=== PATIENT | male | born 1970 | race Caucasian/White ===

== ENCOUNTER 2017-03-07 05:01 | Emergency (ER) | payer MEDICARE ==
[2017-03-07] MEDS ORDERED: PSEUDOEPHEDRINE 30 MG TABLET PO STA (05:11)
[2017-03-07] MEDS ORDERED: KETOROLAC 60 MG/2 ML VIAL IM STA (05:12)
--- NOTE | 2017-03-07 05:16 | ED Physician Documentation ---
History of Present Illness - Stated complaint Stated Complaint: LIGHTHEADED,SINUS PROBLEMS - Chief complaint Chief Complaint: General - History obtained from History obtained from: Patient, Family - History of Present Illness Timing: Yesterday - Additonal information Additional information: Patient is a 46 year old male with a history of epilepsy who is presenting to the emergency department for sinus congestion, "feeling funny" and presumed dehydration. patient states that yesterday at work he felt a little light headed. He felt like he could do everything but that he had sinus pressure, and pressure around his eyes. Patient also states that he hasn't had a bowel movement in over a day. patient states that he is not drinking enough fluids but denies any nausea or vomiting. Patient denies any chest pain or abdominal pain. Review of Systems Constitutional: denies: Fever, Chills Eyes: denies: Discharge, Irritation Ears: denies: Ear pain Nose: reports: Congestion, Sinus pressure / pain Throat: denies: Sore throat Cardiac: denies: Palpitations Respiratory: denies: Cough, Wheezing GI: reports: Constipation. denies: Abdominal Pain, Nausea, Vomiting : denies: Dysuria, Frequency Skin: denies: Rash, Lesions Neurologic: denies: Generalized weakness, Focal weakness, Numbness Immunocompromised: denies: Immunocompromised PD PAST MEDICAL HISTORY - Present Medications Home Medications: Ambulatory Orders Medication Instructions Recorded Confirmed Home Medications Unobtainable 03/07/17 03/07/17 [HOME MEDICATIONS UNOBTAINABLE] - Allergies Allergies/Adverse Reactions: Allergies Allergy/AdvReac Type Severity Reaction Status Date / Time Penicillins AdvReac Unknown Verified 03/07/17 05:11 PD ED PE NORMAL - Vitals Vital signs reviewed: Yes - General General: Alert and oriented X 3, No acute distress, Well developed/nourished - HEENT HEENT: Atraumatic, PERRL, Ears normal, Pharynx benign - Neck Neck: Supple, no meningeal sign, No JVD - Cardiac Cardiac: RRR, No murmur - Respiratory Respiratory: No respiratory distress, Clear bilaterally - Abdomen Abdomen: Soft, Non tender, Non distended - Derm Derm: Normal color, Warm and dry, No rash - Extremities Extremities: No deformity, No edema, No calf tenderness / cord - Neuro Neuro: Alert and oriented X 3, No motor deficit, No sensory deficit, Normal speech - Psych Psych: Normal mood Results - Vitals Vitals: Vital Signs - 24 hr 03/07/17 05:06 Temperature 36.7 C Heart Rate 81 Respiratory 18 Rate Blood Pressure 157/96 H O2 Saturation 99 Oxygen O2 Source Room air - Labs Labs: Laboratory Tests 03/07/17 03/07/17 05:22 05:22 WBC 5.0 RBC 5.38 Hgb 16.4 Hct 48.3 MCV 89.7 MCH 30.4 MCHC 33.9 RDW 12.3 Plt Count 176 MPV 9.1 Neut # 3.3 Lymph # 1.1 L Woodward # 0.5 Eos # 0.1 Baso # 0.0 Absolute Nucleated RBC 0.00 Nucleated RBC % 0.0 Sodium 138 Potassium 4.3 Chloride 104 Carbon Dioxide 26 Anion Gap 8.0 BUN 19 Creatinine 1.0 Estimated GFR (MDRD) 80 L Glucose 109 H Calcium 9.0 Total Bilirubin 0.9 AST 25 ALT 26 Alkaline Phosphatase 58 Total Protein 7.3 Albumin 4.5 Globulin 2.8 Albumin/Globulin Ratio 1.6 Lipase 29 PD MEDICAL DECISION MAKING - ED course Complexity details: reviewed old records, reviewed results, re-evaluated patient , considered differential, d/w patient, d/w family ED course: Patient was seen and examined at bedside. Patient's vital signs were within normal limits and patient was able to tolerate PO without difficulty. labs were drawn and patient was treated with toradol, pseudophed and given a liter of fluid to drink. patient tolerated it without difficulty. Patient required no further work up and was stable for discharge with outpatient follow up. Departure - Departure Disposition: 01 Home, Self Care Clinical Impression: Viral syndrome Condition: Good Instructions: ED Viral Syndrome Follow-Up: Valarie Bower ARNP [Primary Care Provider] - Within 1 week Comments: Your diagnostics today were within normal limits. Your symptoms are likely viral in nature. There is nothing to kill the virus so we just treat the symptoms. You can take over the counter cold/flu/congestion medication. It is important that you get plenty of rest and stay well hydrated with water and electrolyte solutions (gatorade/pedialyte). You should follow up with your doctor if your symptoms persist for more than the next 3-4 days. You may return to the emergency department at any time for new, worsening or uncontrollable symptoms. Forms: Activity restrictions
[2017-03-07 05:28] LABS: BASOPHILS % (AUTO) 0.7 %; EOSINOPHILS # (AUTO) 0.1 10^3/uL (0.0-0.7); EOSINOPHILS % (AUTO) 1.4 %; HGB - HEMOGLOBIN 16.4 g/dL (14.0-18.0); LYMPHOCYTES # (AUTO) 1.1 10^3/uL (1.5-3.5); LYMPHOCYTES % (AUTO) 21.9 %; MEAN CORPUSCULAR HEMOGLOBIN 30.4 pg (27.0-31.0); MEAN CORPUSCULAR HGB CONC 33.9 g/dL (32.0-36.0); MEAN CORPUSCULAR VOLUME 89.7 fL (80.0-94.0); MEAN PLATELET VOLUME 9.1 fL (7.4-11.4); MONOCYTES # (AUTO) 0.5 10^3/uL (0.0-1.0); NEUTROPHILS # (AUTO) 3.3 10^3/uL (1.5-6.6); PLT - PLATELET COUNT 176 10^3/uL (130-450); RED BLOOD COUNT 5.38 10^6/uL (4.70-6.10); RED CELL DISTRIBUTION WIDTH 12.3 % (12.0-15.0)
[2017-03-07 05:40] LABS: ALBUMIN 4.5 g/dL (3.2-5.5); ALBUMIN/GLOBULIN RATIO 1.6 (1.0-2.2); BILIRUBIN,TOTAL 0.9 mg/dL (0.2-1.0); TOTAL PROTEIN 7.3 g/dL (6.7-8.2)
[2017-03-07 05:51] LABS: BILIRUBIN,URINE NEGATIVE (NEGATIVE); GLUCOSE, URINE (UA) NEGATIVE (NEGATIVE); KETONES,URINE (UA) NEGATIVE (NEGATIVE); LEUKOCYTE ESTERASE, URINE NEGATIVE (NEGATIVE); NITRITE,URINE NEGATIVE (NEGATIVE); OCCULT BLOOD,URINE NEGATIVE (NEGATIVE); PROTEIN,URINE NEGATIVE (NEGATIVE); UROBILINOGEN,URINE 0.2 (NORMAL) E.U./dL (NORMAL)
[2017-03-07 05:52] LABS: CLARITY,URINE CLEAR (CLEAR)
[2017-03-07 05:59] VITALS: BP 126/76
== END 2017-03-07 06:00 | disposition home or self-care (01) ==
LOC: ED 05:01
DX: B34.9 Viral infection, unspecified (principal); G40.909 Epilepsy, unspecified, not intractable, without status epilepticus
CPT/HCPCS: 80053; 81003; 83690; 85025; 96372; 99283; A9270; 36415; 81001; 87086

== ENCOUNTER 2017-12-16 09:29 | Outpatient (CLI) | payer MEDICARE ==
[2017-12-16 17:55] LABS: BUN - BLOOD UREA NITROGEN 16 mg/dL (6-20); CARBON DIOXIDE - CO2 26 mmol/L (21-32); CHLORIDE 108 mmol/L (101-111); CHOL/HDL RATIO 3.6 (<5.0); CHOLESTEROL 174 mg/dL; GFR - MDRD 80 (>89); GLUCOSE 102 mg/dL (70-100); HDL CHOLESTEROL 48 mg/dL; LDL CHOLESTEROL,CALCULATED 106 mg/dL; LDL/HDL RATIO 2.2 (<3.6); SODIUM 141 mmol/L (135-145); VLDL CHOLESTEROL 20 mg/dL
[2017-12-16 17:57] LABS: BASOPHILS % (AUTO) 0.4 %; EOSINOPHILS # (AUTO) 0.1 10^3/uL (0.0-0.7); EOSINOPHILS % (AUTO) 1.5 %; HGB - HEMOGLOBIN 15.9 g/dL (14.0-18.0); LYMPHOCYTES # (AUTO) 1.3 10^3/uL (1.5-3.5); LYMPHOCYTES % (AUTO) 21.5 %; MEAN CORPUSCULAR HGB CONC 34.7 g/dL (32.0-36.0); MEAN CORPUSCULAR VOLUME 89.3 fL (80.0-94.0); MEAN PLATELET VOLUME 9.6 fL (7.4-11.4); MONOCYTES # (AUTO) 0.5 10^3/uL (0.0-1.0); MONOCYTES % (AUTO) 7.8 %; NEUTROPHILS # (AUTO) 4.2 10^3/uL (1.5-6.6); NEUTROPHILS % (AUTO) 68.8 %; PLT - PLATELET COUNT 177 10^3/uL (130-450); RED BLOOD COUNT 5.14 10^6/uL (4.70-6.10); RED CELL DISTRIBUTION WIDTH 12.6 % (12.0-15.0); WHITE BLOOD COUNT 6.1 x10^3/uL (4.8-10.8)
== END 2017-12-16 09:30 | disposition home or self-care (01) ==
LOC: LAB.F 09:29
PROVIDERS: ATTEND Nurse Practitioner Family
DX: Z83.3 Family history of diabetes mellitus (principal); Z13.220 Encounter for screening for lipoid disorders; Z79.899 Other long term (current) drug therapy
CPT/HCPCS: 36415; 80048; 80061; 83721; 85025

== ENCOUNTER 2018-06-02 22:21 | Emergency (ER) | payer MEDICARE ==
[2018-06-02] MEDS ORDERED: CLINDAMYCIN 150 MG CAPSULE PO STA (23:23)
--- NOTE | 2018-06-02 23:27 | ED Physician Documentation ---
PD HPI SKIN - Stated complaint Stated Complaint: LT THIGH REDNESS/SWELLING - Chief complaint Chief Complaint: Wound - History obtained from History obtained from: Patient - History of Present Illness Timing - onset: How many hours ago (6) Timing - duration: Hours (6) Timing - details: Gradual onset Pain level max: 0 Pain level now: 0 Severity Comments: mild Location: LLE Quality / character: Other (red and hot) Associated symptoms: No: Fever, Myalgias, Joint pain Contributing factors: Insect bite /sting. No: Exposed to medication, Exposed to food Review of Systems Ten Systems: 10 systems reviewed and negative Constitutional: reports: Reviewed and negative Eyes: reports: Reviewed and negative Ears: reports: Reviewed and negative Nose: reports: Reviewed and negative Throat: reports: Reviewed and negative Cardiac: reports: Reviewed and negative Respiratory: reports: Reviewed and negative GI: reports: Reviewed and negative : reports: Reviewed and negative Skin: reports: Reviewed and negative Musculoskeletal: reports: Reviewed and negative Neurologic: reports: Reviewed and negative Psychiatric: reports: Reviewed and negative Endocrine: reports: Reviewed and negative Immunocompromised: reports: Reviewed and negative PD PAST MEDICAL HISTORY - Past Medical History Other Past Medical History: Reviewed and not pertinent - Past Surgical History Past Surgical History: No Other past surgical history: Reviewed and not pertinent - Present Medications Home Medications: Ambulatory Orders Medication Instructions Recorded Confirmed Clindamycin HCl [Clindamycin 300MG 300 mg PO Q6H #28 capsule 06/02/18 CAP] - Allergies Allergies/Adverse Reactions: Allergies Allergy/AdvReac Type Severity Reaction Status Date / Time Penicillins AdvReac Unknown Verified 06/02/18 22:31 - Living Situation Living Situation: reports: With family Living Arrangement: reports: At home - Social History Does the pt smoke?: No Smoking Status: Never smoker Does the pt drink ETOH?: Yes Does the pt have substance abuse?: No - Family History Family history: reports: Other (Reviewed and not pertinent) - Immunizations Immunizations are current?: Yes PD ED PE NORMAL - Vitals Vital signs reviewed: Yes - General General: Alert and oriented X 3, No acute distress - HEENT HEENT: PERRL - Neck Neck: Supple, no meningeal sign - Cardiac Cardiac: RRR, No murmur - Respiratory Respiratory: Clear bilaterally - Abdomen Abdomen: Normal bowel sounds, Soft, Non tender, Non distended - Derm Derm: Warm and dry - Extremities Extremities: No deformity, Other (Left anterior thigh with small red warm area measuring 3 cm. No fluctuance) - Neuro Neuro: Alert and oriented X 3 - Psych Psych: Normal mood, Normal affect Results - Vitals Vitals: Vital Signs - 24 hr 06/02/18 22:28 Temperature 36.6 C Heart Rate 83 Respiratory 16 Rate Blood Pressure 133/89 H O2 Saturation 98 Oxygen O2 Source Room air PD MEDICAL DECISION MAKING - ED course Complexity details: reviewed results, re-evaluated patient, considered differential, d/w patient, d/w family ED course: 39-year-old male with left leg cellulitis. Discharged on clindamycin. Departure - Departure Disposition: 01 Home, Self Care Clinical Impression: Left leg cellulitis Condition: Stable Instructions: ED Infec Skin Cellulitis Follow-Up: Your, PCP [Other] Prescriptions: Clindamycin HCl [Clindamycin 300MG CAP] 300 mg PO Q6H #28 capsule
[2018-06-02 23:33] VITALS: BP 129/82
== END 2018-06-02 23:32 | disposition home or self-care (01) ==
LOC: ED 22:21
DX: L03.116 Cellulitis of left lower limb (principal)
CPT/HCPCS: 99283; A9270

== ENCOUNTER 2019-04-22 12:22 | Outpatient (CLI) | payer MEDICARE ==
[2019-04-22 17:27] LABS: BASOPHILS % (AUTO) 0.3 %; EOSINOPHILS % (AUTO) 0.3 %; HGB - HEMOGLOBIN 16.6 g/dL (14.0-18.0); LYMPHOCYTES # (AUTO) 1.2 10^3/uL (1.5-3.5); LYMPHOCYTES % (AUTO) 17.7 %; MEAN CORPUSCULAR HEMOGLOBIN 29.5 pg (27.0-31.0); MEAN CORPUSCULAR HGB CONC 33.1 g/dL (32.0-36.0); MEAN CORPUSCULAR VOLUME 89.3 fL (80.0-94.0); MEAN PLATELET VOLUME 10.9 fL (7.4-11.4); MONOCYTES # (AUTO) 0.6 10^3/uL (0.0-1.0); NEUTROPHILS # (AUTO) 5.1 10^3/uL (1.5-6.6); NEUTROPHILS % (AUTO) 72.3 %; PLT - PLATELET COUNT 188 10^3/uL (130-450); RED BLOOD COUNT 5.62 10^6/uL (4.70-6.10); RED CELL DISTRIBUTION WIDTH 12.2 % (12.0-15.0)
[2019-04-22 17:43] LABS: ALBUMIN 4.6 g/dL (3.2-5.5); ALBUMIN/GLOBULIN RATIO 1.4 (1.0-2.2); BILIRUBIN,TOTAL 0.7 mg/dL (0.2-1.0); CALCIUM 9.2 mg/dL (8.5-10.3); CREATININE 1.1 mg/dL (0.6-1.2); TOTAL PROTEIN 7.9 g/dL (6.7-8.2)
== END 2019-04-22 23:59 | disposition home or self-care (01) ==
LOC: LAB.S 12:22
PROVIDERS: ATTEND Family Medicine
DX: G40.909 Epilepsy, unspecified, not intractable, without status epilepticus (principal); Z79.899 Other long term (current) drug therapy
CPT/HCPCS: 36415; 80053; 80203; 81599; 85025

== ENCOUNTER 2020-09-08 08:00 | Outpatient (CLI) | payer MEDICARE ==
--- NOTE | 2020-09-08 23:50 | XRAY Report ---
PROCEDURE: Foot 3 View RT INDICATIONS: RIGHT FOOT SPRAIN TECHNIQUE: 3 views of the foot were acquired. COMPARISON: None FINDINGS: Bones: No fractures or dislocations. No suspicious bony lesions. Soft tissues: No tibiotalar joint effusion. Achilles tendon appears normal. IMPRESSION: No evidence acute bony abnormality of the right foot. Reviewed by: Junaid Tejada MD on 09/08/2020 10:48 PM CL Approved by: Junaid Tejada MD on 09/08/2020 10:48 PM CL Station ID: [id number]
== END 2020-09-08 23:59 | disposition home or self-care (01) ==
LOC: DI.S 08:00
PROVIDERS: ATTEND Physician Assistant
DX: S93.691A Other sprain of right foot, initial encounter (principal)

== ENCOUNTER 2020-09-23 09:31 | Outpatient (CLI) | payer MEDICARE ==
[2020-09-23 15:43] LABS: BASOPHILS % (AUTO) 0.5 %; EOSINOPHILS % (AUTO) 0.9 %; HCT - HEMATOCRIT 45.5 % (42.0-52.0); HGB - HEMOGLOBIN 14.9 g/dL (14.0-18.0); LYMPHOCYTES # (AUTO) 1.3 10^3/uL (1.5-3.5); LYMPHOCYTES % (AUTO) 29.5 %; MEAN CORPUSCULAR HEMOGLOBIN 29.6 pg (27.0-31.0); MEAN CORPUSCULAR HGB CONC 32.7 g/dL (32.0-36.0); MEAN CORPUSCULAR VOLUME 90.3 fL (80.0-94.0); MEAN PLATELET VOLUME 11.5 fL (7.4-11.4); MONOCYTES # (AUTO) 0.4 10^3/uL (0.0-1.0); NEUTROPHILS # (AUTO) 2.5 10^3/uL (1.5-6.6); NEUTROPHILS % (AUTO) 58.9 %; PLT - PLATELET COUNT 178 10^3/uL (130-450); RED BLOOD COUNT 5.04 10^6/uL (4.70-6.10); RED CELL DISTRIBUTION WIDTH 12.4 % (12.0-15.0); WHITE BLOOD COUNT 4.3 x10^3/uL (4.8-10.8)
[2020-09-23 16:06] LABS: ALBUMIN 4.3 g/dL (3.2-5.5); ALBUMIN/GLOBULIN RATIO 1.7 (1.0-2.2); ALKALINE PHOSPHATASE 64 IU/L (42-121); ALT ALANINE AMINOTRANSFERASE 22 IU/L (10-60); AST ASPARTATE AMINOTRANSFERASE 20 IU/L (10-42); BILIRUBIN,TOTAL 1.2 mg/dL (0.2-1.0); BUN - BLOOD UREA NITROGEN 17 mg/dL (6-20); CALCIUM 8.6 mg/dL (8.5-10.3); CARBON DIOXIDE - CO2 25 mmol/L (21-32); CHLORIDE 106 mmol/L (101-111); CHOL/HDL RATIO 3.8 (<5.0); CHOLESTEROL 163 mg/dL; GFR - MDRD 79 (>89); GLUCOSE 94 mg/dL (70-100); HDL CHOLESTEROL 43 mg/dL; LDL CHOLESTEROL,CALCULATED 97 mg/dL; LDL/HDL RATIO 2.3 (<3.6); POTASSIUM 4.1 mmol/L (3.5-5.0); SODIUM 139 mmol/L (135-145); TOTAL PROTEIN 6.8 g/dL (6.7-8.2); TRIGLYCERIDES 113 mg/dL; VLDL CHOLESTEROL 23 mg/dL
== END 2020-09-23 09:32 | disposition home or self-care (01) ==
LOC: LAB.S 09:31
PROVIDERS: ATTEND Physician Assistant
DX: K21.9 Gastro-esophageal reflux disease without esophagitis (principal); Z79.899 Other long term (current) drug therapy; R73.01 Impaired fasting glucose; G40.909 Epilepsy, unspecified, not intractable, without status epilepticus
CPT/HCPCS: 36415; 80053; 80061; 83721; 85025

== ENCOUNTER 2021-07-13 09:00 | Outpatient (CLI) | payer MEDICARE ==
[2021-07-13 14:53] LABS: BASOPHILS % (AUTO) 0.4 %; EOSINOPHILS # (AUTO) 0.1 10^3/uL (0.0-0.7); EOSINOPHILS % (AUTO) 1.1 %; HCT - HEMATOCRIT 46.8 % (42.0-52.0); HGB - HEMOGLOBIN 15.6 g/dL (14.0-18.0); LYMPHOCYTES # (AUTO) 1.3 10^3/uL (1.5-3.5); LYMPHOCYTES % (AUTO) 29.2 %; MEAN CORPUSCULAR HEMOGLOBIN 30.1 pg (27.0-31.0); MEAN CORPUSCULAR HGB CONC 33.3 g/dL (32.0-36.0); MEAN CORPUSCULAR VOLUME 90.2 fL (80.0-94.0); MEAN PLATELET VOLUME 11.1 fL (7.4-11.4); MONOCYTES # (AUTO) 0.4 10^3/uL (0.0-1.0); MONOCYTES % (AUTO) 8.7 %; NEUTROPHILS # (AUTO) 2.7 10^3/uL (1.5-6.6); NEUTROPHILS % (AUTO) 60.2 %; PLT - PLATELET COUNT 206 10^3/uL (130-450); RED BLOOD COUNT 5.19 10^6/uL (4.70-6.10); WHITE BLOOD COUNT 4.5 x10^3/uL (4.8-10.8)
[2021-07-13 15:04] LABS: ALBUMIN 4.1 g/dL (3.2-5.5); ALBUMIN/GLOBULIN RATIO 1.4 (1.0-2.2); ALKALINE PHOSPHATASE 58 IU/L (42-121); ALT ALANINE AMINOTRANSFERASE 22 IU/L (10-60); AST ASPARTATE AMINOTRANSFERASE 21 IU/L (10-42); BILIRUBIN,TOTAL 0.9 mg/dL (0.2-1.0); BUN - BLOOD UREA NITROGEN 19 mg/dL (6-20); CALCIUM 9.3 mg/dL (8.5-10.3); CARBON DIOXIDE - CO2 25 mmol/L (21-32); CHLORIDE 107 mmol/L (101-111); CHOL/HDL RATIO 3.6 (<5.0); CHOLESTEROL 186 mg/dL; GFR - MDRD 79 (>89); GLUCOSE 95 mg/dL (70-100); HDL CHOLESTEROL 52 mg/dL; LDL CHOLESTEROL,CALCULATED 119 mg/dL; LDL/HDL RATIO 2.3 (<3.6); SODIUM 139 mmol/L (135-145); TOTAL PROTEIN 7.1 g/dL (6.7-8.2); TRIGLYCERIDES 77 mg/dL; VLDL CHOLESTEROL 15 mg/dL
[2021-07-13 15:56] LABS: PSA TOTAL 1.08 ng/mL (0.000-2.000)
[2021-07-13 15:57] LABS: PSA FREE 0.39 ng/mL (0.16-2.81)
[2021-07-16 11:22] LABS: HCV AB <0.1 s/co ratio (0.0-0.9)
== END 2021-07-13 09:01 | disposition home or self-care (01) ==
LOC: LAB.S 09:00
PROVIDERS: ATTEND Physician Assistant
DX: K21.9 Gastro-esophageal reflux disease without esophagitis (principal); Z11.59 Encounter for screening for other viral diseases; Z12.5 Encounter for screening for malignant neoplasm of prostate; Z13.1 Encounter for screening for diabetes mellitus; Z13.220 Encounter for screening for lipoid disorders
CPT/HCPCS: 36415; 80053; 80061; 83721; 84153; 84154; 85025; 86803

== ENCOUNTER 2023-04-07 08:01 | Outpatient (CLI) | payer MEDICARE, OTHER ==
--- NOTE | 2023-04-07 20:23 | Ultrasound Report ---
PROCEDURE: Abdomen Complete INDICATIONS: ABD PAIN TECHNIQUE: Ultrasound of the abdomen was obtained. COMPARISON: None. FINDINGS: Liver: Unremarkable hepatic echotexture without focal mass lesion Gallbladder: No evidence of cholelithiasis, pericholecystic fluid or sonographic Stallings sign. There a re several subcentimeter echogenic foci associated with the wall the gallbladder largest measuring 7 x 4 mm, likely gallbladder wall polyp. Gallbladder is wall is slightly thickened at 4 mm as well Common bile duct: 3 mm Pancreas: Visualized portions of the pancreas are within normal limits Spleen: Spleen is normal in size and homogeneous in echotexture. Kidneys: Kidneys are normal in size and echotexture. No hydronephrosis or renal calculi. No solid masses. Aorta: Visualized aorta is unremarkable without aneurysm. Iliacs: Proximal common iliac arteries are unremarkable. IVC: Intrahepatic inferior vena cava is patent. Other: No free abdominal fluid. IMPRESSION: Probable gallbladder wall polyps measuring up to 7 mm. No evidence of cholelithiasis. Reviewed by: Ari Villarreal MD on 04/07/2023 7:21 PM AK Approved by: Ari Villarreal MD on 04/07/2023 7:21 PM AKST Station ID: [id number]
== END 2023-04-07 08:02 | disposition home or self-care (01) ==
LOC: DI 08:01
PROVIDERS: ATTEND Registered Nurse
DX: R10.9 Unspecified abdominal pain (principal)

== ENCOUNTER 2023-04-21 10:30 | Emergency (ER) | payer OTHER ==
--- NOTE | 2023-04-21 11:11 | ED Physician Documentation ---
PD HPI ABD PAIN - Stated complaint Stated Complaint: LT SIDE/ABD PX - Chief complaint Chief Complaint: Abd Pain - History obtained from History obtained from: Patient - History of Present Illness Timing - onset: Today Timing - duration: Hours Timing - details: Abrupt onset, Still present (He had abrupt onset of left flank pain this morning which traveled to the left side abdomen and was associated with nausea and vomiting, lightheadedness, unable to find comfortable position. It has eased a fair amount just before arrival here but not completely.) Quality: Sharp, Pain Location: LLQ Radiation: Left flank Improved by: No: Laying still, Vomiting Worsened by: No: Moving, Breathing Associated symptoms: Nausea, Vomiting. No: Fever, Diarrhea, Constipation, Dysuria Similar symptoms before: Has not had sx before Recently seen: Not recently seen Review of Systems Constitutional: denies: Fever, Chills Cardiac: denies: Chest pain / pressure Respiratory: denies: Dyspnea, Cough GI: reports: Abdominal Pain, Nausea, Vomiting. denies: Constipation, Diarrhea PD PAST MEDICAL HISTORY - Past Medical History Past Medical History: Yes Neuro: Seizure disorder : None - Past Surgical History Past Surgical History: No - Present Medications Home Medications: Ambulatory Orders Medication Instructions Recorded Confirmed HYDROcod/ACETAM 5/325 [Moran 5/325] 1 ea PO Q6H PRN #14 tablet 04/21/23 Meloxicam [Mobic] 7.5 mg PO BID 10 Days #15 tablet 04/21/23 Ondansetron Odt [Zofran] 4 mg TL Q6H PRN #10 tablet 04/21/23 Pantoprazole [Protonix] 40 mg PO DAILY 30 Days #30 tablet 04/21/23 Zonisamide 100 mg PO DAILY 04/21/23 04/21/23 - Allergies Allergies/Adverse Reactions: Allergies Allergy/AdvReac Type Severity Reaction Status Date / Time Penicillins AdvReac Unknown Verified 04/21/23 10:37 - Social History Does the pt smoke?: No Smoking Status: Never smoker Does the pt drink ETOH?: Yes Does the pt have substance abuse?: No - Immunizations Immunizations are current?: Yes PD ED PE NORMAL - Vitals Vital signs reviewed: Yes - General General: Alert and oriented X 3, Well developed/nourished, Other (appears only mild pain discomfort) - Cardiac Cardiac: RRR, No murmur - Respiratory Respiratory: No respiratory distress, Clear bilaterally - Abdomen Abdomen: Normal bowel sounds, Soft, Non distended, No organomegaly, Other (mild tender only left mid abd without guarding nor percussion tenderness. No tenderness at all right side. ) - Male Male : Deferred - Rectal Rectal: Deferred - Back Back: Other (moderate left flank tender to percussion. ) - Derm Derm: Normal color, Warm and dry, No rash - Extremities Extremities: No edema, No calf tenderness / cord - Neuro Neuro: Alert and oriented X 3, No motor deficit, Normal speech Results - Vitals Vitals: Vital Signs - 24 hr 04/21/23 04/21/23 04/21/23 10:33 12:23 14:11 Temperature 36.0 C L 36.7 C Heart Rate 56 L 72 76 Respiratory 15 16 20 Rate Blood Pressure 123/77 127/78 126/74 O2 Saturation 98 100 99 Oxygen O2 Source Room air - Labs Labs: Laboratory Tests 04/21/23 04/21/23 04/21/23 11:02 11:02 11:45 WBC 10.1 RBC 5.17 Hgb 15.5 Hct 45.6 MCV 88.2 MCH 30.0 MCHC 34.0 RDW 12.2 Plt Count 197 MPV 10.3 Neut # (Auto) 9.2 H Lymph # (Auto) 0.7 L Cooper # (Auto) 0.3 Eos # (Auto) 0.0 Baso # (Auto) 0.0 Absolute Nucleated RBC 0.00 Nucleated RBC % 0.0 Sodium 139 Potassium 3.6 Chloride 106 Carbon Dioxide 25 Anion Gap 8.0 BUN 20 Creatinine 1.1 Estimated GFR (MDRD) 70 L Glucose 164 H Calcium 9.1 Total Bilirubin 0.6 AST 15 ALT 16 Alkaline Phosphatase 61 Total Protein 6.8 Albumin 4.3 Globulin 2.5 Albumin/Globulin Ratio 1.7 Lipase 20 Urine Color YELLOW Urine Clarity HAZY Urine pH 7.0 Ur Specific Moore 1.020 Urine Protein NEGATIVE Urine Glucose (UA) NEGATIVE Urine Ketones NEGATIVE Urine Occult Blood LARGE H Urine Nitrite NEGATIVE Urine Bilirubin NEGATIVE Urine Urobilinogen 0.2 (NORMAL) Ur Leukocyte Esterase NEGATIVE Urine RBC TNTC H Urine WBC 0-3 Ur Squamous Epith Cells NONE SEEN Amorphous Sediment Moderate Urine Bacteria Few Ur Microscopic Review INDICATED Urine Culture Comments NOT INDICATED - Rads (name of study) abd/pelvic CT Relevant Findings:: Prelim report reviewed (awaiting report still), EMP independent interpretation of test (proximal hydroureter, and hydronephrosis left side. No noted stone. Enlarged prostate. Aorta appears normal. No noted diverticulitis nor mass. Awaiting Rad reading. ) PD Medical Decision Making - ED course Complexity details: reviewed results (hydroureter and kidney on left. No stone noted. No other acute process. Distal esophageal wall thickness with some local nodes suggests esophagitis. REcommend f/u with consider scope. ), re-evaluated patient (his pain is improved with IV toradol and dilaudid. The return of pain was mild/moderate suggesting, in combo with the CT, that the stone has passed and having pain now from residual backpressure from inflammation/clots in ureter. This should readily improve through the day. No other cause for pain.), considered differential (Abrupt pain without comfortable position in the left flank to left abdomen. Sounds likely kidney stone. No history of such. Can get scan to ensure no other process such as intestinal, aortic, masses etc.), d/w patient Reviewed Lab Results: The patient was having minimal discomfort on initial exam. The pain did start coming back some and was given IV fluids as well as Toradol and 0.5 mg Dilaudid IV with good improvement. He states his pain is again minimal. His urinalysis shows blood in the urine without any signs of obvious infection. The microscopic was TNTC on red cells. Kidney function is in reasonable range. Blood count and white count are normal. The CT scan did not show any obvious stone in the ureter nor bladder but he does have hydroureter particularly of the proximal ureter and some swelling in stranding around the left kidney consistent with obstructive or postobstructive. Consideration would be a passed stone and still potential inflammation or clot in the ureter with unresolved hydroureter as of this time. This should improve with time however. I do not see any aortic process such as aneurysm. No obvious tumors or masses. No obvious diverticulitis. At this point I do not have the radiology report has yet. Still pending. Will presumably treated as a passed stone with still some residual inflammation. He can stay well-hydrated and use ondansetron if needed for nausea and anti- inflammatories twice daily for the next few days anyway. Add Tylenol if needed for pain or hydrocodone. Departure - Departure Disposition: 01 Home, Self Care Clinical Impression: Left sided abdominal pain, Ureterolithiasis, Esophagitis Condition: Stable Record reviewed to determine appropriate education?: Yes Instructions: ED Stone Renal Passed Follow-Up: Samy Hatch MD [Provider Admit Priv/Credential] - Prescriptions: Meloxicam [Mobic] 7.5 mg PO BID 10 Days #15 tablet HYDROcod/ACETAM 5/325 [Moran 5/325] 1 ea PO Q6H PRN #14 tablet PRN Reason: Pain Pantoprazole [Protonix] 40 mg PO DAILY 30 Days #30 tablet Ondansetron Odt [Zofran] 4 mg TL Q6H PRN #10 tablet PRN Reason: Nausea / Vomiting Comments: The report from the CT scan was similar to my impression with dilation of the ureter and kidney on the left side consistent with a blockage of the ureter (which is the tube passing from the kidney to the bladder). There is no stone evident so it is likely that you did pass the stone already. It is not easily visible in the bladder likely to be there. There can still be residual swelling of the ureter and kidney with residual pain related to inflammation and spasm of the ureter and also at times some small clots yet to pass. As such there can still be some pain at times but usually not to the severity that it was before of course. I would suggest staying well-hydrated. Rest at home today and possibly tomorrow. Use some anti-inflammatories for the next several days to week even as the injury to the ureter heals. Ondansetron if needed for nausea. Add Tylenol every 4-6 hours if needed for pain or hydrocodone/acetaminophen if needed for worse pain. Will be less likely to need the stronger pain medicine at this point but I did write a prescription in case. On the CT scan they did note some thickening of the bladder wall which may be from inflammation. There is a slightly enlarged prostate. They do notice some inflammation around the end of the esophagus with a couple of small lymph nodes. Consideration for some reflux esophagitis or such. I would suggest some acid reducing medicine such as pantoprazole daily for the next month. Follow-up with urology if your abdomen and flank pain have not resolved over the next couple of days. Return to the ER if needed. Follow-up with primary care as well for consideration of further evaluation of the esophagitis appearance on the CT scan. I sent your prescriptions to the [facility] in [place]. I am prescribing a short course of narcotic pain medication for you. These are potentially dangerous and addictive medications that should be used carefully. These medications may constipate you. Take an [id number] stool softener such as docusate twice daily with plenty of water while taking these medications. If you go 24 hours without a bowel movement, take [id number] MiraLAX, per package instructions. Do not drink or drive while taking these medications. If you received narcotic or sedating medications while in the emergency department do not drive for 24 hours. Store this medication in a safe, secure place and out of reach of children. It is a violation of federal law to give or sell this medication to another person or to use in a manner other than prescribed. The ED will not refill narcotic prescriptions, including prescriptions lost or stolen. You can dispose of unwanted medications at the [facility] [place]'s office or at several pharmacies such as [facility] Forms: PCP List, Activity restrictions Discharge Date/Time: 04/21/23 14:12
[2023-04-21 11:16] LABS: BASOPHILS % (AUTO) 0.3 %; HCT - HEMATOCRIT 45.6 % (42.0-52.0); HGB - HEMOGLOBIN 15.5 g/dL (14.0-18.0); LYMPHOCYTES # (AUTO) 0.7 10^3/uL (1.5-3.5); LYMPHOCYTES % (AUTO) 6.8 %; MEAN CORPUSCULAR VOLUME 88.2 fL (80.0-94.0); MEAN PLATELET VOLUME 10.3 fL (7.4-11.4); MONOCYTES # (AUTO) 0.3 10^3/uL (0.0-1.0); MONOCYTES % (AUTO) 2.5 %; NEUTROPHILS # (AUTO) 9.2 10^3/uL (1.5-6.6); NEUTROPHILS % (AUTO) 90.2 %; PLT - PLATELET COUNT 197 10^3/uL (130-450); RED BLOOD COUNT 5.17 10^6/uL (4.70-6.10); RED CELL DISTRIBUTION WIDTH 12.2 % (12.0-15.0); WHITE BLOOD COUNT 10.1 x10^3/uL (4.8-10.8)
[2023-04-21 11:30] LABS: ALBUMIN 4.3 g/dL (3.2-5.5); ALBUMIN/GLOBULIN RATIO 1.7 (1.0-2.2); BILIRUBIN,TOTAL 0.6 mg/dL (0.2-1.0); CALCIUM 9.1 mg/dL (8.5-10.3); CREATININE 1.1 mg/dL (0.6-1.3); POTASSIUM 3.6 mmol/L (3.5-4.5); TOTAL PROTEIN 6.8 g/dL (6.4-8.9)
[2023-04-21] MEDS: SODIUM CHLORIDE 0.9% 1,000 ML IV STA (11:37)
[2023-04-21 11:54] LABS: BILIRUBIN,URINE NEGATIVE (NEGATIVE); GLUCOSE, URINE (UA) NEGATIVE (NEGATIVE); KETONES,URINE (UA) NEGATIVE (NEGATIVE); LEUKOCYTE ESTERASE, URINE NEGATIVE (NEGATIVE); NITRITE,URINE NEGATIVE (NEGATIVE); OCCULT BLOOD,URINE LARGE (NEGATIVE); PROTEIN,URINE NEGATIVE (NEGATIVE); UROBILINOGEN,URINE 0.2 (NORMAL) E.U./dL (NORMAL)
[2023-04-21 11:55] LABS: CLARITY,URINE HAZY (CLEAR)
[2023-04-21] MEDS ORDERED: iohexoL-300 100 ML VIAL ONE (12:01)
[2023-04-21 12:07] LABS: AMORPHOUS SEDIMENT,UR Moderate /LPF; BACTERIA,URINE Few /HPF (None Seen); RBC,URINE TNTC /HPF (0-5); SQUAMOUS EPITHELIAL CELL,UR NONE SEEN (<= Few); WBC,URINE 0-3 /HPF (0-3)
[2023-04-21] MEDS: KETOROLAC 15 MG/ML VIAL IVP STA (12:49)
[2023-04-21] MEDS: HYDROmorphone 0.5 MG/0.5 ML SYRINGE IVP STA (12:50)
--- NOTE | 2023-04-21 13:32 | CT Report ---
PROCEDURE: Abdomen/Pelvis W INDICATIONS: left flank to abd pain abrupt today CONTRAST: Omni 300 100ml TECHNIQUE: After the administration of intravenous contrast, a CT scan of the abdomen and pelvis was performed. Images were recorded and evaluated at appropriate window settings. Reformats: coronal and sagittal. F or radiation dose reduction, the following was used: automated exposure control, adjustment of mA and /or kV according to patient size. COMPARISON: CT abdomen/pelvis 04/24/2009 FINDINGS: Image quality: Diagnostic. Lower chest: Distal esophageal wall appears thickened with multiple small surrounding paraesophageal lymph nodes versus less likely varices. Small hiatal hernia. Liver: No solid mass. Liver is mildly diffusely hypoattenuating. Gallbladder and biliary tree: No radiopaque stones or wall thickening. No biliary dilation. Spleen: No splenomegaly. Pancreas: No pancreatic ductal dilation. Adrenals: No adrenal nodule. Kidneys and ureters: 4 mm nonobstructing calculus is seen at the interpolar region of the left kidney . No right renal calculus. There is prominence of the left renal pelvis to the level of the ureterope lvic junction. No ureteral calculus is seen. Stomach, bowel and peritoneum: No bowel distension. No pathologic free fluid. Multiple diverticula ar e seen in the colon without signs of acute diverticulitis. Small bowel loops are unremarkable. Lymph nodes: No central or retroperitoneal adenopathy. Vessels: No infrarenal aortic aneurysm. PELVIS Reproductive organs: Coarse calcifications are seen in the prostate. Bladder: Mild circumferential bladder wall thickening. Pelvic lymph nodes: No pelvic adenopathy by size criteria. Bones: No aggressive osseous abnormality. Other: No significant ventral or inguinal hernia. IMPRESSION: 1.Mild to moderate left hydronephrosis to the level of the ureteropelvic junction. No obstructing dann culus is seen. A nonobstructing 4 mm calculus is seen at the interpolar region of the left kidney. 2.Mild cervical bladder wall thickening may be related to chronic outlet obstruction although acute u rinary tract infection is not excluded. Recommend correlation with urinalysis. 3.Distal esophageal wall thickening with increased number of small periesophageal lymph nodes, suspic ious for esophagitis although follow-up and possible endoscopy number recommended to exclude esophage al malignancy 4.Colonic diverticulosis without signs of acute diverticulitis. Reviewed by: Kwadwo Ruth MD on 04/21/2023 1:31 PM PST Approved by: Kwadwo Ruth MD on 04/21/2023 1:31 PM PST Station ID: [id number]
[2023-04-21 14:21] VITALS: BP 126/74; O2SAT 99
[2023-04-21] MEDS: iohexoL-300 100 ML VIAL IVP ONE (15:21)
== END 2023-04-21 14:12 | disposition home or self-care (01) ==
LOC: ED 10:30
DX: N13.2 Hydronephrosis with renal and ureteral calculous obstruction (principal); K20.90 Esophagitis, unspecified without bleeding; Z79.899 Other long term (current) drug therapy
CPT/HCPCS: 36415; 74177; 80053; 81001; 83690; 85025; 96374; 96375; 99284; J1170; Q9967; 81003; 87086